=== PATIENT | female | born 1960 | race Caucasian/White ===

== ENCOUNTER → 2017-08-17 10:52 | Outpatient (CLI) | payer OTHER ==
[~2017-08-17] VITALS: Ht 162.6 cm; Wt 120.9 kg
--- NOTE | ~2017-08-17 | HEMODYNAMI ---
PATIENT:ANALY RANDALL MEDICAL RECORD: [id number] : 62 LOCATION:[facility] ADMISSION DATE: 08/17/17 Generatedon:08/17/201713:22 Patient name: ANALY RANDALL Patient #: [id number] SSN: : 1960 Date of study: 08/17/2017 Page: Of Hemodynamic Procedure Report Patient Data Patient Demographics Procedure consent was obtained First Name: ANALY Gender: Female Last Name: PRAKASH : 1960 Middle Initial: ARTI Age: 57 year(s) Patient #: [id number] Race: Unknown Additional ID: [id number] Contact details [address]: [address] [place] [address] State: [place] City: [place] Zip code: [address] Past Medical History Allergies Allergen Reaction Date Comments Reported Other allergy 08/17/2017 lisinopril, topiramate, rosuvastatin Admission Admission Data Admission Date: 08/17/2017 Admission Time: 10:52 Admit Source: Other Lab Results Lab Result Date: 08/17/2017 Lab Result Time: 11:35 Biochemistry Name Units Result Min Max BUN mg/dl 12 --(-*--)-- 7 18 Creatinine mg/dl 0.8 --(-*--)-- 0.6 1.3 CBC Name Units Result Min Max Hematocrit % 39.4 -*(----)-- 42 54 Hemoglobin g/dl 12.8 -*(----)-- 13.5 17.5 Procedure Procedure Types Cath Procedure Miscellaneous Procedures Moderate Sedation up to 15 minutes Peripheral Cath Diagnostic Procedure Cath Peripheral Finkf-Xkzkprl-Wik-Off Procedure Description Procedure Date Procedure Date: 08/17/2017 Procedure Start Time: 13:11 Procedure End Time: 13:20 Procedure Staff Name Function Francis Herzog MD Performing Physician Rolan Khan RT Monitor Elly Tamez RT Scrub Braden Koroma RN Nurse Procedure Data Cath Procedure Fluoroscopy Diagnostic fluoroscopy Total fluoroscopy Time: 0.6 time: 0.6 min min Diagnostic fluoroscopy Total fluoroscopy dose: 171 dose: 171 mGy mGy Contrast Material Contrast Material Type Amount (ml) Isovue 300 81 Entry Location Entry Primary Successful Side Size Upsize Upsize Entry Closure Succes sful Closure Location (Fr) 1 (Fr) 2 (Fr) Remarks Device Remarks Femoral Right 5 Fr Exoseal artery Estimated blood loss: 5 ml Diagnostic catheters Device Type Used For End Catheter Placement DIAGNOSTIC Pigtail 5Fr Procedure catheter ([id number]) Procedure Complications No complications Procedure Medications Medication Administration Route Dosage 0.9% NaCl I.V. 100 ml/hr Oxygen NC 2 l/min Heparin Flush Bag added to field 2 bags (1000units/500ml NS) Lidocaine 2% added to field 20 Versed I.V. 0.5 mg Fentanyl I.V. 25 mcg Versed I.V. 0.5 mg Fentanyl I.V. 25 mcg Fentanyl I.V. 50 mcg Versed I.V. 1 mg Hemodynamics Rest HGB: 12.8 (g/dl) Heart Rate: 70 (bpm) Snapshots Pre Cath Intra NCS Post Cath Vital Signs Time Heart Resp SPO2 etCO2 NIBP (mmHg) Rhythm Pain Sedation Rate (ipm) (%) (mmHg) Status Level (bpm) 12:53:09 80 21 100 40.9 133/88(101) NSR 0 (11) 10(A) , No pain 12:57:44 67 16 100 43.9 133/78(102) NSR 0 (11) 10(A) , No pain 13:02:18 70 17 100 36.3 134/76(100) NSR 0 (11) 10(A) , No pain 13:06:53 71 15 100 43.2 126/80(98) NSR 0 (11) 10(A) , No pain 13:11:25 66 16 100 38.6 128/81(95) NSR 0 (11) 9(A) , No pain 13:15:55 77 13 97 0 123/86(99) NSR 0 (11) 9(A) , No pain 13:20:26 72 17 99 45.4 133/79(98) NSR 0 (11) 9(A) , No pain Medications Time Medication Route Dose Verified Delivered Reason Notes Effe ctiveness by by 12:52:35 0.9% NaCl I.V. 100 Braden Braden Per ml/hr Ga Koroma physician RN RN 12:52:45 Oxygen NC 2 Braden Braden Per l/min Ga Koroma physician RN RN 12:52:56 Heparin Flush added 2 Braden Braden used for Bag to bags Lorigan Lorigan procedure (1000units/500ml field RN RN NS) 12:53:06 Lidocaine 2% added 20ml Braden Braden for local to vial Lorigan Lorigan anesthetic field RN RN 12:58:54 Versed I.V. 0.5 Braden Braden for mg Lorigan Lorigan sedation RN RN 12:59:04 Fentanyl I.V. 25 Braden Braden for mcg Lorigan Lorigan sedation RN RN 13:00:12 Versed I.V. 0.5 Braden Braden for mg Lorigan Lorigan sedation RN RN 13:04:39 Fentanyl I.V. 25 Braden Braden for mcg Lorigan Lorigan sedation RN RN 13:11:32 Fentanyl I.V. 50 Braden Braden for mcg Lorigan Lorigan sedation RN RN 13:11:40 Versed I.V. 1 mg Braden Braden for Lorigan Lorigan sedation RN sql ssis developer Log Time Note 12:38:07 Informed consent obtained and on chart 12:38:10 Admit Source: Other 12:38:30 Diagnostic Cath status Elective 12:38:32 Braden Koroma RN sent for patient. Start room use. 12:38:32 Time tracking: Regular hours 12:38:36 Plan of Care:Hemodynamics will remain stable., Cardiac rhythm will remain stable., Comfort level will be maintained., Respiratory function will remain adequate., Patient/ family verbilizes understanding of procedure., Procedure tolerated without complication., Recovers from procedure without complications.. 12:38:52 H&P Date Dictated: 08/08/2017 Within 30 days and on chart., H&P Addendum completed by physician on day of procedure. (MUST COMPLETE FOR ALL OUTPATIENTS). 12:40:12 Lab Result : BUN 12 mg/dl 12:40:12 Lab Result : Creatinine 0.8 mg/dl 12:40:12 Lab Result : Hemoglobin 12.8 g/dl 12:40:12 Lab Result : Hematocrit 39.4 % 12:40:19 Lab results completed and on chart. 12:42:52 Patient received from Pre/Post Procedure Room to CCL 1 Alert and oriented. Tansferred to table in Supine position. 12:42:53 Warm blankets applied, and essence hugger turned on for patient comfort. 12:42:55 Correct patient and procedure confirmed by team. 12:42:56 ECG and BP/O2 sat monitors applied to patient. 12:42:58 Pre-procedure instructions explained to patient. 12:42:58 Pre-op teaching completed and patient verbalized understanding. 12:42:59 Family in waiting room. 12:43:00 Patient NPO since Midnight. 12:43:35 Patient allergic to Other allergylisinopril, topiramate, rosuvastatin 12:43:38 Is the patient allergic to Iodine/contrast media? No. 12:43:43 Is patient on blood thinner?No 12:43:46 Patient diabetic? Yes. 12:52:19 Vital chart was started 12:52:35 0.9% NaCl 100 ml/hr I.V. was administered by Braden Koroma RN; Per physician; 12:52:45 Oxygen 2 l/min NC was administered by Braden Koroma RN; Per physician; 12:52:56 Heparin Flush Bag (1000units/500ml NS) 2 bags added to field was administered by Braden Koroma RN; used for procedure; 12:53:06 Lidocaine 2% 20ml vial added to field was administered by Braden Koroma RN; for local anesthetic; 12:56:16 If diabetic: On Metformin? Yes 12:56:20 If on Metformin: Last Dose? 08/15/2017 12:56:55 Patient not . Patient is over age 55. 12:56:57 Previous problem with sedation/anesthesia? No ? 12:56:58 Snore? Yes 12:56:59 Sleep apnea? Yes 12:57:00 Deviated septum? No 12:57:00 Opens mouth fully? Yes 12:57:01 Sticks out tongue? Yes 12:57:03 Airway obstruction? No ? 12:57:06 Dentures? Yes in tight 12:57:15 Pre procedure: right dorsailis pedis pulse 1+ Palpable, but thready & weak; easily obliterated 12:57:26 Pre procedure: left dorsailis pedis pulse 1+ Palpable, but thready & weak; easily obliterated 12:57:29 Patient pain scale 0/10 ?. 12:57:35 IV patent on arrival in right forearm with 0.9% NaCl at [facility]. 12:57:40 Bilateral groins area was prepped with chlora-prep and draped in sterile fashion 12:57:41 Alarms reviewed by R. N. 12:57:41 Sharps counted by scrub and verified by R.N. 12:57:45 DIAGNOSTIC WIRE .035 260cm J wire ([id number]) opened to sterile field. 12:57:45 ACIST Syringe (94627) opened to sterile field. 12:57:46 Bag Decanter (2002S) opened to sterile field. 12:57:46 Medline Cath Pack ([id number]) opened to sterile field. 12:57:48 ACIST Manifold (92564) opened to sterile field. 12:57:49 ACIST Hand Control (85423) opened to sterile field. 12:57:50 Tegaderm 4 x 4 (1626W) opened to sterile field. 12:57:52 PERCUTANEOUS ENTRY 19GA needle opened to sterile field. 12:57:56 SHEATH 5FR Steele ([id number]) opened to sterile field. 12:58:15 Physician arrived 12:58:16 --------ALL STOP TIME OUT------ 12:58:16 Final Timeout: patient, procedure, and site verified with staff and physician. All members of the team are in agreement. 12:58:18 Bilateral groins site verified by team. 12:58:20 Physical assessment completed. ASA score P 2 - A patient with mild systemic disease as per Francis Herzog MD. 12:58:23 Sedation plan: IV Moderate Sedation Medication:Versed, Fentanyl 12:58:32 Baseline sample Acquired. 12:58:36 Rhythm: sinus rhythm 12:58:37 Full Disclosure recording started 12:58:42 Zero performed for pressure channel P1 12:58:54 Versed 0.5 mg I.V. was administered by Braden Koroma RN; for sedation; 12:59:04 Fentanyl 25 mcg I.V. was administered by Braden Koroma RN; for sedation; 13:00:12 Versed 0.5 mg I.V. was administered by Braden Koroma RN; for sedation; 13:04:39 Fentanyl 25 mcg I.V. was administered by Braden Koroma RN; for sedation; 13:11:32 Fentanyl 50 mcg I.V. was administered by Braden Koroma RN; for sedation; 13:11:32 Procedure started. 13:11:35 Local anesthetic to right femoral artery with Lidocaine 2% by Francis Herzog MD.INITIAL ACCESS ONLY 13:11:40 Versed 1 mg I.V. was administered by Braden Koroma RN; for sedation; 13:11:45 A 5 Fr sheath was inserted into the Right Femoral artery 13:12:37 A DIAGNOSTIC Pigtail 5Fr catheter ([id number]) was advanced over the wire and used for Procedure. 13:13:45 Abdominal angiogram w/ runoff was performed. 13:14:02 Right leg runoff performed. 13:14:14 Left leg runoff performed. 13:16:00 Catheter removed. 13:16:20 EXOSEAL 5Fr (EX500) opened to sterile field. 13:16:33 Sheath removed intact; hemostasis achieved with Exoseal to the Right Femoral artery. 13:16:34 Procedure ended.(Physican Out) 13:16:39 Fluoroscopy time 00.60 minutes. 13:16:43 Flurop Dose total: 171 13:16:43 Fluoroscopy dose: 171 mGy 13:16:46 Contrast amount:Isovue 300 81ml. 13:16:47 Sharps counted by scrub and verified by R.N. 13:16:49 Insertion/operative site no bleeding no hematoma. 13:16:52 Post-op/insertion site Right Femoral artery dressed using a 4 x 4 and Tegaderm. 13:16:57 Post right femoral artery:stable, soft, clean and dry 13:16:59 Post Procedure Pulses reassessed and unchanged 13:17:00 Post-procedure physical assessment completed. ASA score P 2 - A patient with mild systemic disease as per Francis Herzog MD. 13:17:02 Post procedure rhythm: unchanged. 13:17:04 Estimated blood loss: 5 ml 13:17:06 Post procedure instruction explained to patient.Patient verbalizes understanding. 13:17:07 Patient needs reinforcement of post procedure teaching. 13:17:38 Procedure type changed to Cath procedure, Miscellaneous Procedures, Moderate Sedation up to 15 minutes, Peripheral Cath Diagnostic Procedure, Cath Peripheral, Vobdn-Ynnzbcf-Cwe-Off 13:20:20 Procedure and supply charges have been captured, reviewed, submitted and are correct. 13:20:22 Procedure Complication : No complications 13:20:25 Vital chart was stopped 13:20:25 See physician's report for complete and final results. 13:20:27 Report given to Pre/Post Procedure Room. 13:20:29 Patient transfered to Pre/Post Procedure Room with Stretcher. 13:20:46 Procedure ended. 13:20:46 Full Disclosure recording stopped 13:21:34 End room use (Document Last) Device Usage Item Name Manufacture Quantity Catalog Hospital Part Current Minimal Lot# / Number Charge Number Stock Stock Serial# Code ACIST Acist 1 20516 456209 815491 402871 20 Syringe Medical (78091) Systems Inc Bag Decanter Microtek 1 2001S 301870 32747 634956 5 (2001S) Medical Inc. Medline Cath Cardinal 1 [id number] 347889 31117 108753 5 Pack Health ([id number]) ACIST Acist 1 84528 709371 140632 326725 5 Manifold Medical (94434) Systems Inc ACIST Hand Acist 1 91276 266068 561796 771757 5 Control Medical (73581) Systems Inc Tegaderm 4 x 3M 1 1626W 556580 343013 249229 5 4 (1626W) PERCUTANEOUS Cook Medical 1 X80065 569119 345552 5 ENTRY 19GA needle SHEATH 5FR Terumo 1 YEE271 618119 912635 544928 40 Steele (FEG960) DIAGNOSTIC Cardinal 1 [id number] 518409 005585 875893 5 Pigtail 5Fr Health catheter ([id number]) EXOSEAL 5Fr Cardinal 1 EX500 302817 756441 534777 10 (EX500) Health DIAGNOSTIC [facility] Jesse 1 181133 653745 895738 707401 30 WIRE .035 260cm J wire (666338) Signature Audit [place] Stage Time Signature Unsigned Intra-Procedure 08/17/2017 Rolan Khan 1:22:07 PM RT(R) Signatures Monitor : Rolan Khan RT Signature : Date : Time : [facility] [address] [place] [address]
--- NOTE | ~2017-08-17 | OP ---
PATIENT NAME: ANALY RANDALL MEDICAL RECORD: [id number] :62 LOCATION:[facility] ADMISSION DATE: SURGEON: YOHAN MENSAH MD DATE OF OPERATION: 08/17/2017 PROCEDURE: Aortofemoral runoff. The catheter was placed above the renal arteries, and abdominal aortic angiogram was performed. FINDINGS: Left and right renal arteries were both well visualized, with no evidence of significant renal artery stenosis. Abdominal aorta is a smooth walled vessel, no evidence of aneurysmal dilatation, no evidence of dissection. RIGHT SYSTEM: Right iliac system, external and internal were both free of disease. Right femoral system: Right deep, superficial femoral were both free of disease, with 3-vessel runoff distally. LEFT SYSTEM: Left iliac system, internal and external both free of disease. Left femoral system: Deep, superficial and common are all free of significant disease, with 3-vessel runoff. IMPRESSION: Falsely elevated noninvasive studies, and no evidence of obstructive disease via AFRO. TRANSINT:[id number] Voice Confirmation ID: [id number] DOCUMENT ID: [id number] YOHAN MENSAH MD CC: [id number] DICTATION DATE: 08/17/17 1328 BOOK SORTER: 08/17/17 1348 DEP CLI 08/17/17 [facility] [address] [place] [id number]
[~2017-08-17 10:52] MED LIST: ARAVA10 MG PO; GABAPENTIN100 MG PO; GLUCOPHAGE XR750 MG PO; HYDROCHLOROTH12.5 M1 PO; LIVALO4 MG PO; MOBIC7.5 MG PO; OMEPRAZOLE40 MG PO; PROPRANOLOL HCL20 MG PO
[2017-08-17 11:36] VITALS: BP 134/91; Ht 162.6 cm; Wt 120.9 kg
[2017-08-17 12:06] LABS: BASOPHILS 0.4 % (0-2); HEMATOCRIT 39.4 % (36.0-48.0); HEMOGLOBIN 12.8 g/dL (12-16); IMMATURE GRANULOCYTES 0.2 % (0-5); LYMPHOCYTES 36.4 % (15-50); MCH 29.8 pg (26.0-34.0); MCHC 32.5 g/dL (31.0-37.0); MCV 91.8 fL (80.0-100.0); MEAN PLATELET VOLUME 11.4 fL (7.4-10.4); MONOCYTES 9.1 % (2-11); NEUTROPHILS 50.9 % (40-80); PLATELET COUNT 205 10x3/uL (130-400); RBC 4.29 10x6/uL (4.00-5.40); RDW 14.1 % (11.5-14.5)
[2017-08-17 12:24] LABS: CALC OSMOLALITY 283 mosm/kg (275-300); CALCIUM 9.1 mg/dL (8.5-10.1); CARBON DIOXIDE 30.4 mmol/L (21.0-32.0); CHLORIDE - SERUM 102 mmol/L (98-107); CREATININE - SERUM 0.8 mg/dL (0.6-1.3); GLUCOSE 117 mg/dL (74-106); POTASSIUM - SERUM 3.4 mmol/L (3.5-5.1); SODIUM 142 mmol/L (136-145); UREA NITROGEN 12 mg/dL (7-18); eGFR NON AFRICAN AMERICAN 78 mL/min (90-120)
== END | disposition home or self-care (01) ==
LOC: D.CATH 10:52
PROVIDERS: Internal Medicine Interventional Cardiology
DX: I99.9 Unspecified disorder of circulatory system (principal); Z01.812 Encounter for preprocedural laboratory examination

== ENCOUNTER → 2018-05-18 15:21 | Outpatient (CLI) | payer OTHER ==
[2017-08-17 11:36] VITALS: BMI 45.7
== END | disposition home or self-care (01) ==
LOC: D.LABREF 15:21
DX: J32.9 Chronic sinusitis, unspecified (principal)

== ENCOUNTER 2018-08-28 07:23 | Day surgery (SDC) | payer OTHER ==
[~2018-08-28] VITALS: Ht 162.6 cm; Wt 121.1 kg
[~2018-08-28 07:23] MED LIST changes: +COZAAR100 MG PO
[2018-08-28 07:57] LABS: ANION GAP 11.8 mmol/L (8-16); CALCIUM 9.3 mg/dL (8.5-10.1); CARBON DIOXIDE 31.7 mmol/L (21.0-32.0); CREATININE - SERUM 0.9 mg/dL (0.6-1.3); POTASSIUM - SERUM 3.5 mmol/L (3.5-5.1)
[2018-08-28 08:28] LABS: HEMATOCRIT 41.9 % (36.0-48.0); HEMOGLOBIN 13.8 g/dL (12-16); MCHC 32.9 g/dL (31.0-37.0); MCV 91.1 fL (80.0-100.0); MEAN PLATELET VOLUME 11.6 fL (7.4-10.4); RBC 4.6 10x6/uL (4.00-5.40); RDW 14.1 % (11.5-14.5); WBC 5.7 10x3/uL (4.8-10.8)
[2018-08-28 09:25] VITALS: BP 153/89; Ht 162.6 cm; Wt 121.1 kg
[2018-08-29 18:07] LABS: ACID FAST SMEAR Negative (()); AFB SPECIMEN PROCESSING Concentration (())
[2018-08-29 18:07] LABS: ACID FAST SMEAR Negative (()); AFB SPECIMEN PROCESSING Concentration (()); AFB SPECIMEN PROCESSING Tissue Grinding (())
[2018-08-30 15:22] LABS: FUNGUS STAIN Final report (())
[2018-08-30 15:22] LABS: FUNGUS STAIN Final report (())
--- NOTE | 2018-09-04 08:45 | OP ---
PATIENT NAME: ANALY RANDALL MEDICAL RECORD: [id number] :62 LOCATION:[facility] ADMISSION DATE: SURGEON: HOMERO CACERES MD DATE OF OPERATION: 08/28/2018 PREOPERATIVE DIAGNOSIS: Chronic pansinusitis. POSTOPERATIVE DIAGNOSIS: Chronic pansinusitis. PROCEDURE: Bilateral endoscopic ethmoidectomy, bilateral endoscopic middle meatal antrostomy and left frontal sinusotomy. SURGEON: Homero Caceres MD ANESTHESIA: General orotracheal. BLOOD LOSS: Less than 5 cc. SPECIMENS: Cultures and path from both maxillary sinuses, right and left. COMPLICATIONS: None. DISPOSITION: Recovery stable. NASAL PACKING: None. FINDINGS: Thick green solid material in the maxillary sinuses bilaterally. There was purulence in both maxillary sinuses, both ethmoids and draining from the frontal sinus duct on the left side. DESCRIPTION OF PROCEDURE: She was brought to the operating room and placed in supine position, sedated and intubated by anesthesia. The table was turned 90 degrees. Head drape was applied and she was positioned for sinus surgery. Using a headlight and nasal speculum, the inferior middle turbinate, lateral nasal wall, uncinate were injected with a total of 1 cc of 1% lidocaine with 1:100,000 epinephrine and 2 Afrin pledgets were placed on each side of the nose. She was positioned, prepped and draped in the usual fashion for nasal surgery. The left side was addressed first. Afrin pledgets were removed. Inferior turbinate was normal. The nasopharynx was normal. The septum was normal. Inferior meatus was visualized and normal. The middle turbinate was structurally normal, covered in purulence. Cultures were obtained. Then, the middle turbinate was gently medialized with a freer. There was solid green material filling the middle meatus that was removed. Maxillary sinus was opened and again large chunks of green solid material were removed from that maxillary sinus repeatedly with the ethmoid cavity that was not irrigated yet, but once all that material was removed, the mucosa looked relatively normal, not much granular changes or anything like that just slightly inflamed mucosa. The right side was then addressed. Afrin pledgets were removed and again there was thick caked up yellow material in the middle meatus that was removed. The middle turbinate was gently medialized and the maxillary sinus was entered. Again, large chunks of thick green material were removed, some of this was sent for cultures, some for path and the maxillary sinus was completely debrided as was the ethmoid cavity, really minimal bleeding there as well. Once that was completed, the left side was again examined and was relatively clear from cleaning it previously, but there was drainage from the frontal sinus. A long OPERATIVE REPORT [id number] ANALY RANDALL curved thin olive tip suction was inserted into the frontal sinus and easily went through the duct up into the sinus. This was irrigated. The maxillary sinus, ethmoid cavity were irrigated repeatedly with saline, again getting purulence of this thick green solid material, until it was completely clean. There was no bleeding. The same was repeated with the right side over and over until everything was completely clean. The ethmoid cavities, frontal sinus duct area, and maxillary sinuses were completely clean. The pharynx was suctioned and some mupirocin on a curved olive tip suction was placed in both maxillary sinuses and ethmoids. The eyes were examined and normal. She was awakened, extubated, and transported to recovery in good condition. No complications. TRANSINT:[id number] Voice Confirmation ID: [id number] DOCUMENT ID: [id number] HOMERO CACERES MD at 0845 CC: [id number] DICTATION DATE: 08/28/18 1155 DYE BECK REEL OPERATOR: 08/28/18 1233 [facility] 08/28/18 [facility] [address] [place] [address]
--- NOTE | 2018-09-04 08:45 | HP ---
PATIENT: DEBBIE RANDALL MEDICAL RECORD: [id number] ACCOUNT: [id number] LOCATION:[facility] : 62 ADMISSION DATE: 08/28/18 PCP: CHAVEZ SMITH MD HISTORY AND PHYSICAL EXAMINATION HISTORY OF PRESENT ILLNESS: Debbie is a 58-year-old. She has a history of a sinus surgery. She has had chronic sinusitis and had been refractory to medical management, is being admitted for sinus surgery. PAST MEDICAL HISTORY: Includes, diabetes, hypertension, and reflux. PAST SURGICAL HISTORY: Includes cholecystectomy, hysterectomy, knee replacement, back surgery, rotator cuff surgery, and sinus surgery. CURRENT MEDICATIONS: Include losartan, omeprazole, carisoprodol, hydrochlorothiazide, propranolol, meloxicam, gabapentin, metformin, pravastatin, and leflunomide. ALLERGIES: TOPAMAX AND LISINOPRIL. PHYSICAL EXAMINATION: GENERAL: She is healthy appearing. FACE: Normal, symmetric, no lesions. EYES: Sclerae and conjunctivae are normal. NOSE: She has on endoscopy thick solid material in the maxillary sinus bilaterally and drainage from the ethmoids. ORAL CAVITY AND OROPHARYNX: Normal. Normal palate. Tongue protrudes midline. NECK: No masses, no adenopathy. CHEST: Clear. CARDIOVASCULAR: Regular rate and rhythm, no murmur. EXTREMITIES: Normal. IMPRESSION: Chronic sinusitis. PLAN: Bilateral middle meatal antrostomy and ethmoidectomy. TRANSINT:[id number] Voice Confirmation ID: [id number] DOCUMENT ID: [id number] ZEENAT CACERES MD at 0845 CC: [id number] DICTATION DATE: 08/25/18 1442 [employer]: 08/25/18 1846 [facility] 08/28/18 [place] [id number] [place] [id number]
[2018-09-04 13:13] LABS: FUNGUS MYCOLOGY CULTURE Preliminary report (())
[2018-09-04 13:13] LABS: FUNGUS MYCOLOGY CULTURE Preliminary report (())
== END 2018-08-28 13:50 | disposition home or self-care (01) ==
LOC: D.OPS 07:23
PROVIDERS: Anesthesiology; Otolaryngology
DX: J32.0 Chronic maxillary sinusitis (principal); J32.2 Chronic ethmoidal sinusitis; J32.1 Chronic frontal sinusitis; Z01.812 Encounter for preprocedural laboratory examination

== ENCOUNTER 2018-11-06 11:25 | Outpatient (CLI) | payer OTHER ==
[2018-11-06 11:45] VITALS: BP 163/89; BMI 45.0
--- NOTE | 2018-11-06 12:50 | NUR ---
CATHETER IN LEFT ARM. NO SWELLING DRS CLEAN DRY AND INTACT. LAB DRAWN AND ANTIBIOTIC GIVEN ON A PUMP.
--- NOTE | 2018-11-06 12:56 | NUR ---
CATHETER IN LEFT ARM, DRESSING CLEAN DRY AND INTACT, FLUSHED WITH SALINE AND LAB DRAWN. GOOD BLOOD RETURN. ANTIBIOTIC GIVEN ON PUMP OVER 30MIN. TOLERATED WELL
[2018-11-06 13:07] LABS: BASOPHILS 0.3 % (0-2); EOSINOPHILS 6.5 % (0-7); HEMATOCRIT 37.7 % (36.0-48.0); IMMATURE GRANULOCYTES 0.2 % (0-5); LYMPHOCYTES 35.5 % (15-50); MCH 29.1 pg (26.0-34.0); MCHC 31.8 g/dL (31.0-37.0); MCV 91.3 fL (80.0-100.0); MEAN PLATELET VOLUME 12.5 fL (7.4-10.4); MONOCYTES 7.8 % (2-11); NEUTROPHILS 49.7 % (40-80); RBC 4.13 10x6/uL (4.00-5.40); WBC 6.1 10x3/uL (4.8-10.8)
[2018-11-06 13:09] LABS: PLATELET COUNT 182 10x3/uL (130-400)
[2018-11-06 13:19] LABS: CREATININE - SERUM 0.9 mg/dL (0.6-1.3)
== END 2018-11-06 13:27 | disposition home or self-care (01) ==
LOC: D.OPS 11:25
PROVIDERS: ATTEND Student in an Organized Health Care Education/Training Program
DX: J32.9 Chronic sinusitis, unspecified (principal)

== ENCOUNTER 2018-11-13 10:07 | Outpatient (CLI) | payer OTHER ==
--- NOTE | 2018-11-13 11:19 | NUR ---
PT LEFT UNIT AMBULATING AT 1115
== END 2018-11-13 11:15 | disposition home or self-care (01) ==
LOC: D.LAB 10:07 → D.OPS 10:30 → D.LAB 11:15
PROVIDERS: ATTEND Student in an Organized Health Care Education/Training Program
DX: Z51.81 Encounter for therapeutic drug level monitoring (principal); Z79.2 Long term (current) use of antibiotics

== ENCOUNTER → 2018-11-21 13:12 | Outpatient (CLI) | payer OTHER ==
[2018-11-06 11:45] VITALS: BMI 45.0
[2018-11-21 16:49] LABS: BASOPHILS 0.3 % (0-2); HEMATOCRIT 39.4 % (36.0-48.0); HEMOGLOBIN 12.7 g/dL (12-16); IMMATURE GRANULOCYTES 0.2 % (0-5); LYMPHOCYTES 27.9 % (15-50); MCH 29.5 pg (26.0-34.0); MCHC 32.2 g/dL (31.0-37.0); MCV 91.4 fL (80.0-100.0); MEAN PLATELET VOLUME 12.7 fL (7.4-10.4); MONOCYTES 8.2 % (2-11); NEUTROPHILS 56.4 % (40-80); PLATELET COUNT 205 10x3/uL (130-400); RBC 4.31 10x6/uL (4.00-5.40); RDW 12.9 % (11.5-14.5); WBC 6.1 10x3/uL (4.8-10.8)
== END | disposition home or self-care (01) ==
LOC: D.LABREF 13:12
PROVIDERS: ATTEND Student in an Organized Health Care Education/Training Program
DX: J32.9 Chronic sinusitis, unspecified (principal)

== ENCOUNTER 2018-11-22 08:00 | Outpatient (CLI) | payer OTHER ==
--- NOTE | 2018-11-22 14:55 | NUR ---
1455-ARRIVED TO ROOM 2510 FOR MID LINE REPLACEMENT. ALBERTA THIBODEAUX WITH VASCULAR ACCESS NOTIFIED.
== END 2018-11-22 23:59 | disposition home or self-care (01) ==
LOC: D.OPS 08:00
PROVIDERS: ATTEND Student in an Organized Health Care Education/Training Program
DX: J32.9 Chronic sinusitis, unspecified (principal)

== ENCOUNTER 2020-10-12 12:21 | Inpatient (IN) | payer OTHER ==
[~2020-10-12] VITALS: Ht 162.6 cm; Wt 105.9 kg
--- NOTE | ~2020-10-12 | HEMODYNAMI ---
PATIENT:ANALY RANDALL MEDICAL RECORD: [id number] : 62 [id number] ADMISSION DATE: 10/12/20 Generatedon:18:56 Patient name: ANALY RANDALL Patient #: [id number] SSN: : 1960 Date of study: 10/16/2020 Page: Of Hemodynamic Procedure Report Patient Data Patient Demographics Procedure consent was obtained First Name: ANALY Gender: Female Last Name: PRAKASH : 1960 Middle Initial: ARTI Age: 60 year(s) Patient #: [id number] Race: Unknown Additional ID: [id number] Contact details [address]: [address] [place] [address] State: [place] City: [place] Zip code: [address] Past Medical History Allergies Allergen Reaction Date Comments Reported Other allergy 08/17/2017 lisinopril, topiramate, rosuvastatin Other allergy 10/16/2020 lisinopril, adhesive tape, topomax Admission Admission Data Admission Date: 10/12/2020 Admission Time: 15:10 Room #: D.2137 Procedure Procedure Types Cath Procedure Peripheral Cath Diagnostic Procedure PICC PICC Line Placement Procedure Description Procedure Date Procedure Date: 10/16/2020 Procedure Start Time: 8:47 Procedure End Time: 8:56 Procedure Staff Name Function Dallin Steven MD Performing Physician JOSÉ MANUEL CANNON RT Monitor Teja Hurd RT Scrub Gabbie Farrell RN Nurse Sara Higginbotham RN Nurse Procedure Data Cath Procedure Fluoroscopy Diagnostic fluoroscopy Total fluoroscopy Time: 0.1 time: 0.1 min min Hemodynamics Rest Pre Cath Intra NCS Post Cath Procedure Log Time Note 8:26:56 Teja Hurd RT (R) (CV) sent for patient. Start room use. 8:26:58 Time tracking: Regular hours (M-F 7:00 - 5:00) 8:27:03 Patient received from Med II to IR Alert and oriented. Tansferred to table in Supine position. 8:: Signed procedure consent form obtained from patient. 8::07 Warm blankets applied, and essence hugger turned on for patient comfort. ::08 Correct patient and procedure confirmed by team. 8::09 8:27:20 Pre-procedure instructions explained to patient. 8::20 Pre-op teaching completed and patient verbalized understanding. 8:28:11 Patient allergic to Other allergylisinopril, adhesive tape, topomax 8:28:17 Is the patient allergic to Iodine/contrast media? No. 8:28:25 8:28:36 Right Arm was prepped with chlora-prep and draped in sterile fashion. 8:28:37 Alarms reviewed by Manuel Dykes 8:28:38 Sharps counted by scrub and verified by Emanuel 8:28:39 8:40:22 Physician arrived 8:40:23 --------ALL STOP TIME OUT------ 8:40:24 Final Timeout: patient, procedure, and site verified with staff and physician. All members of the team are in agreement. 8:40:26 Right Arm site verified by team. 8:42:49 Procedure started. 8:42:49 Full Disclosure recording started 8:47:00 Local anesthetic to right arm with Lidocaine 1% by Dallin Steven MD.INITIAL ACCESS ONLY 8:47:21 Venous access obtained using ultrasound guidance. 8:48:47 PICC line was trimmed to 34cm and advanced to the superior vena cava.Position verified under fluoroscopy. 8:53:56 Procedure ended.(Physican Out) 8:54:05 Fluoroscopy time 00.10 minutes. 8:54:08 Dose Area Product 1 mGy/cm. 8:54:09 Sharps counted by scrub and verified by R.N. 8:54:15 Insertion/operative site no bleeding no hematoma. 8:54:28 Post-op/insertion site Right Arm dressed using a biopatch and SorbaView Sheild. 8:55:02 Procedure and supply charges have been captured, reviewed, submitted and are correct. 8:55:28 Use device set IR Diagnostic 8:55:29 Tegaderm 4 x 4 ([id number]) opened to sterile field. 8:55:30 Sterile Angiographic Pack opened to sterile field. 8:55:31 Bag Decanter () opened to sterile field. 8:55:32 PowerPICC 5Fr double lumen catheter opened to sterile field. 8:56:10 Patient transfered to [facility] with Wheelchair. 8:56:11 Procedure ended. 8:56:11 Full Disclosure recording stopped Device Usage Item Name Manufacture Quantity Catalog Hospital Part Current Minimal Lot# / Number Charge Number Stock Stock Serial# Code Tegaderm 4 x 3M 1 [id number] 4 (1626W) Sterile Cardinal 1 [id number] 5 Angiographic Health Pack Bag Decanter Microtek 1 [id number] 5 () [employer] PowerPICC Bard 1 [id number] 5 5Fr double lumen catheter Signature Audit [place] Stage Time Signature Unsigned Intra-Procedure 10/16/2020 JOSÉ MANUEL CANNON RT 8:56:23 AM (R) [facility] [address] [place] [address]
[~2020-10-12 12:21] MED LIST changes: +HYDROCODON-ACE1 EAC7 PO; +PHENERGAN25 M1 PO; +PRAVACHOL40 MG PO; +ULTRAM50 MG PO; +VITAMIN D50000 UNI1 PO
[2020-10-12 13:49] LABS: ANION GAP 13.4 mmol/L (8-16); CALCIUM 9.4 mg/dL (8.5-10.1); CARBON DIOXIDE 28.2 mmol/L (21.0-32.0); CREATININE - SERUM 0.9 mg/dL (0.6-1.3); POTASSIUM - SERUM 3.6 mmol/L (3.5-5.1)
[2020-10-12 13:54] LABS: BASOPHILS 0.6 % (0-2); EOSINOPHILS 3.5 % (0-7); HEMATOCRIT 43.8 % (36.0-48.0); LYMPHOCYTE ABS# 1.81 10x3/uL (1.18-3.74); LYMPHOCYTES 25.1 % (15-50); MCH 29.5 pg (26.0-34.0); MCV 92.4 fL (80.0-100.0); MEAN PLATELET VOLUME 11.7 fL (7.4-10.4); MONOCYTES 7.2 % (2-11); NEUTROPHIL ABS# 4.59 10x3/uL (1.56-6.13); NEUTROPHILS 63.6 % (40-80); PLATELET COUNT 241 10x3/uL (130-400); RBC 4.74 10x6/uL (4.00-5.40); RDW 12.9 % (11.5-14.5); WBC 7.2 10x3/uL (4.8-10.8)
[2020-10-12 14:05] LABS: ALBUMIN 3.8 g/dL (3.4-5.0); BILIRUBIN - DIRECT 0.08 mg/dL (0.00-0.30); BILIRUBIN - INDIRECT 0.26 mg/dL (0.00-1.00); BILIRUBIN - TOTAL 0.34 mg/dL (0.2-1.3); PROTEIN - SERUM 8.2 g/dL (6.4-8.2)
[2020-10-12 16:16] VITALS: BP 183/80
[2020-10-12 17:01] VITALS: BP 183/80; Ht 162.6 cm; Wt 105.9 kg
--- NOTE | 2020-10-12 19:30 | NUR ---
RECEIVED REPORT, WILL ASSUME CARE OF PT, ASKING IF SHE WAS GOING TO GET DINNER, PROVIDED A SANDWICH AND DRINK, DENIES ANY OTHER NEEDS AT THIS TIME, BED IS LOW, SRX2, CALL LIGHT IN REACH, WILL CONTINUE PLAN OF CARE
[2020-10-12] MEDS ORDERED: GLUCOPHAGE500 MG PO (19:55)
[2020-10-12 22:30] VITALS: BP 111/75
--- NOTE | 2020-10-13 04:47 | NUR ---
I have reviewed this patient and I concur with the Shift Assessment completed by the Licensed Practical Nurse today this shift.
[2020-10-13 06:32] LABS: ANION GAP 8.6 mmol/L (8-16); BASOPHILS 0.6 % (0-2); BILIRUBIN - TOTAL 0.57 mg/dL (0.2-1.3); CALCIUM 8.8 mg/dL (8.5-10.1); CARBON DIOXIDE 30.1 mmol/L (21.0-32.0); CREATININE - SERUM 0.9 mg/dL (0.6-1.3); EOSINOPHILS 5.8 % (0-7); HEMATOCRIT 38.4 % (36.0-48.0); HEMOGLOBIN 12.1 g/dL (12-16); IMMATURE GRANULOCYTES 0.3 % (0-5); LYMPHOCYTE ABS# 1.27 10x3/uL (1.18-3.74); LYMPHOCYTES 38.8 % (15-50); MCH 29.1 pg (26.0-34.0); MCHC 31.5 g/dL (31.0-37.0); MCV 92.3 fL (80.0-100.0); MEAN PLATELET VOLUME 11.5 fL (7.4-10.4); MONOCYTES 8.6 % (2-11); NEUTROPHILS 45.9 % (40-80); PLATELET COUNT 203 10x3/uL (130-400); POTASSIUM - SERUM 3.7 mmol/L (3.5-5.1); PROTEIN - SERUM 6.8 g/dL (6.4-8.2); RBC 4.16 10x6/uL (4.00-5.40)
[2020-10-13 06:37] LABS: WBC 3.3 10x3/uL (4.8-10.8)
--- NOTE | 2020-10-13 07:00 | NUR ---
RECEIVED REPORT. ASSUMED CARE OF PATIENT. CALL LIGHT WITHIN REACH. PATIENT RESTING IN BED WITH EYES OPEN, ATTENTION TOWARD CELLPHONE. WHITE BOARD UPDATED, BEDSIDE SHIFT REPORT COMPLETE. DENIES NEEDS. NO DISTRESS.
--- NOTE | 2020-10-13 08:14 | NUR ---
medicated for pain to periorbital sites at this time. Dr. Carlisle at bedside for am rounds. no distress.
--- NOTE | 2020-10-13 08:24 | HP ---
PATIENT: ANALY RANDALL MEDICAL RECORD: [id number] ACCOUNT: [id number] LOCATION:[address] : 62 ADMISSION DATE: 10/12/20 PCP: CHAVEZ SMITH MD HISTORY AND PHYSICAL EXAMINATION CHIEF COMPLAINT: Headache pain for "several months." HISTORY OF PRESENT ILLNESS: This is a 60-year-old female with diabetes, chronic sinusitis, had sinus surgery in August by Dr. Crawford has had pseudomonas resistant to Cipro and Levaquin. States that she is just having worsening pain in her head and around the left eye. Denies fever or chills. No vision changes. No nausea or vomiting. No dizziness. In the ER, CBC was normal. BMP and liver functions were all okay. A CT of the head showed no acute intracranial process, but there was extensive paranasal sinus disease. With her pain and resistant sinusitis she is admitted. PAST MEDICAL AND SURGICAL HISTORY: She has the chronic sinusitis as above, osteoarthritis, hypertension, diabetes, hyperlipidemia, reflux and obesity. PAST SURGICAL HISTORY: Sinus surgery by Dr. Crawford on 08/19/2020. She has had bilateral carpal tunnel release, bilateral knee arthroscopies, bilateral shoulder surgeries, left total knee arthroplasty, appendectomy, cholecystectomy, hysterectomy, back surgery. ALLERGIES: TO LISINOPRIL AND TOPAMAX. HOME MEDICATIONS: Phenergan p.r.n. nausea and vomiting, losartan 100 mg once a day, pravastatin 40 mg once a day, propranolol 20 mg twice a day, gabapentin 300/600 mg twice a day, [place] 5 q. 6 hours p.r.n. pain, tramadol 50 b.i.d. p.r.n. pain, meloxicam 15 mg once a day, hydrochlorothiazide 12.5 mg once a day, omeprazole 40 mg once a day, metformin 500 mg once a day. She takes Taltz shots from Dr. Viveros station air traffic control specialist once a month, vitamin D 50,000 units every Tuesday. HABITS: No tobacco, alcohol or drugs. FAMILY HISTORY: Parents with heart disease and cancer. SOCIAL HISTORY: She is retired. REVIEW OF SYSTEMS: GENERAL: No major weight changes. HEENT: Chronic sinusitis as above. CARDIAC: No known history of heart disease. LUNGS: She has had some asthma problems. GASTROINTESTINAL: She has had heartburn/GERD. GENITOURINARY: Urine, no significant infections there. MUSCULOSKELETAL: Osteoarthritis. NEUROLOGIC: No history of migraines or seizures. PSYCHIATRIC: Denies depression or melancholia. PHYSICAL EXAMINATION: VITAL SIGNS: Temperature 97.5, pulse 78, respirations 20, blood pressure 183/80, O2 sat 98%. GENERAL: She is awake, alert. She is complaining of some pain around the left eye and across the frontal area. HISTORY AND PHYSICAL [id number] ANALY RANDALL SKIN: Warm and dry. HEENT: Grossly within normal limits. NECK: Supple. No JVD or bruit. HEART: Regular rate and rhythm without murmur. CHEST: Lungs are clear. ABDOMEN: Soft, nontender. EXTREMITIES: No edema. LABORATORY DATA: CBC with a white count of 7200, hemoglobin 14, hematocrit 43.8. Basic metabolic panel: Sodium 138, potassium 3.6, chloride 100, CO2 is 28.2, BUN 13, creatinine 0.9, glucose 102, calcium 9.4. Liver functions are normal. CT of the head shows no acute intracranial problem, but there is extensive paranasal sinus disease. ASSESSMENT: 1. Chronic sinusitis. 2. Worsening headache. PLAN: She is admitted. Blood cultures were done. She has been started on Zosyn and gentamicin from the ED. We will control her pain. Monitor sugar. Other tests or procedures as warranted. TRANSINT:[id number] Voice Confirmation ID: [id number] DOCUMENT ID: [id number] MIKAEL COURTNEY MD at 0824 CC: [id number] DICTATION DATE: 10/12/202004 SOFTWARE TESTER: 10/12/20 2105 ADM IN [facility] [address] [place] [id number]
[2020-10-13 08:58] VITALS: BP 147/76
--- NOTE | 2020-10-13 11:10 | NUR ---
FSBS 126. NO INSULIN COVERAGE PER SLIDING SCALE.
--- NOTE | 2020-10-13 12:41 | NUR ---
SCDs APPLIED TO BILATERAL LOWER EXTREMITIES. MED REC COMPLETED, PHARMACY UPDATED. NO DISTRESS.
[2020-10-13 15:53] VITALS: BP 144/72
--- NOTE | 2020-10-13 16:14 | NUR ---
fsbs 111. no insulin per sliding scale. Medicated for pain at this time. no distress.
--- NOTE | 2020-10-13 19:03 | NUR ---
pt lying in bed no distress noted will continue to monitor
[2020-10-13 20:00] VITALS: BP 134/60
[2020-10-14 04:00] VITALS: BP 118/45
[2020-10-14 06:32] LABS: ANION GAP 9.5 mmol/L (8-16); CALCIUM 9.2 mg/dL (8.5-10.1); POTASSIUM - SERUM 3.5 mmol/L (3.5-5.1)
[2020-10-14 06:33] LABS: BASOPHILS 0.5 % (0-2); EOSINOPHILS 5.9 % (0-7); HEMATOCRIT 40.1 % (36.0-48.0); HEMOGLOBIN 12.8 g/dL (12-16); IMMATURE GRANULOCYTES 0.3 % (0-5); LYMPHOCYTE ABS# 1.74 10x3/uL (1.18-3.74); LYMPHOCYTES 44.7 % (15-50); MCH 29.3 pg (26.0-34.0); MCHC 31.9 g/dL (31.0-37.0); MCV 91.8 fL (80.0-100.0); MEAN PLATELET VOLUME 11.7 fL (7.4-10.4); NEUTROPHIL ABS# 1.54 10x3/uL (1.56-6.13); NEUTROPHILS 39.6 % (40-80); PLATELET COUNT 213 10x3/uL (130-400); RBC 4.37 10x6/uL (4.00-5.40); RDW 12.6 % (11.5-14.5); WBC 3.9 10x3/uL (4.8-10.8)
--- NOTE | 2020-10-14 06:55 | HP ---
PATIENT: ANALY RANDALL MEDICAL RECORD: [id number] ACCOUNT: [id number] LOCATION:[address] : 62 ADMISSION DATE: 10/12/20 PCP: CHAVEZ SMITH MD HISTORY AND PHYSICAL EXAMINATION REASON FOR ADMISSION: Severe headache. HISTORY OF PRESENT ILLNESS: The patient is a 60-year-old female with history of metabolic syndrome and chronic sinusitis. She had a headache progressively getting worse and failing outpatient therapy for the last several weeks. She had had bilateral maxillary sinus antrectomies by Dr. Crawford recently, who states she has been having increasing headaches in the left frontal area over her eye. She had these headaches are unlike her migraines, which she has a history of. She was placed on Fioricet without improvement, was due to see Dr. Crawford, but came in over the weekend because of increasing headache. She denies fever. Still has some postnasal drainage. PAST MEDICAL HISTORY: Chronic maxillary sinusitis with resistant pseudomonas, currently on nasal antibiotics as it was resistant to Cipro and Levaquin; migraine headaches; hypertension; hyperlipidemia; osteoarthritis; diabetic neuropathy; psoriasis; obesity; and chronic low back pain. SURGICAL HISTORY: She has had arthroscopic procedure on the shoulder, carpal tunnel release, cholecystectomy, hysterectomy, knee replacement, lumbar fusion, partial claviculectomy, and recent bilateral sinus windows. FAMILY HISTORY: Positive for hypertension. SOCIAL HISTORY: She has never used tobacco products or alcohol. MEDICATIONS: Fioricet 50/300 one to two q.6 hours for headache, Inderal 20 mg b.i.d., HCTZ 12.5 q.a.m., omeprazole 40 mg q.a.m., Pravastatin 40 mg at bedtime, losartan 100 mg a day, Metformin 500 mg at bedtime, albuterol HFA one to two puffs q.6 hours p.r.n. shortness of breath, meloxicam 15 mg a day, gabapentin 300 mg 2 capsules b.i.d., Zofran 4 mg q.4 hours p.r.n. nausea, clonidine 0.1 mg p.o. for systolic blood pressure over 170, amlodipine 5 mg a day, methocarbamol 500 mg b.i.d. p.r.n. muscle spasm, and lumbago Maxalt 10 mg p.r.n. migraine headaches. ALLERGIES: LISINOPRIL AND TOPAMAX. REVIEW OF SYSTEMS: GENERAL: She denies any recent fever. Has been fatigued since her surgery. Poor appetite. HEENT: No recent visual changes. She has chronic sinus congestion, somewhat better recently. Denies any epistaxis. Has complained of headache over the left frontal area and orbit. RESPIRATORY: No SOB or cough. CARDIAC: No exertional chest pain, claudication, or edema. GASTROINTESTINAL: No nausea, vomiting, change in stools or blood per rectum. GENITOURINARY: No incontinence. GYNECOLOGIC: No vaginal bleeding. MUSCULOSKELETAL: Has chronic lumbago and shoulder arthralgias from previous surgeries. INTEGUMENT: No rash or itching. HISTORY AND PHYSICAL [id number] ANALY RANDALL PSYCHIATRIC: Denies depressed mood. PHYSICAL EXAMINATION: VITAL SIGNS: The patient is afebrile, blood pressure of 140/80, heart rate is 72 and regular. Her weight is 234 pounds with a height of 64 inches, BMI of 40. GENERAL: The patient is in obvious discomfort. HEENT: Normocephalic. Eyes were clear with some photophobia bilaterally. Pupils are equal and reactive. She is tender over the left frontal sinus to palpation. NECK: Supple. CHEST: Clear. HEART: Regular rate. ABDOMEN: Obese, soft, nontender. EXTREMITIES: 1+ bipedal edema bilaterally. INTEGUMENT: No rash. PSYCHIATRIC: Denies depressed mood. NEUROLOGIC: Oriented times 3. Cranial nerves grossly intact. Gait is normal. ASSESSMENT: 1. Intractable left frontal headache. 2. CT scan showing pansinusitis. Postoperative changes in the maxillary sinuses bilaterally. 3. History of migraine headache. This headache is atypical metabolic syndrome. PLAN: The patient will be admitted for pain control. ENT consult, Dr. Crawford. Sliding scale insulin. TRANSINT:[id number] Voice Confirmation ID: [id number] DOCUMENT ID: [id number] CHAVEZ SMITH MD at 0655 CC: [id number] DICTATION DATE: 10/13/20 1323 TIME MOTION ANALYST: 10/13/20 1540 [place] [address]
[2020-10-14 07:28] VITALS: BP 118/45
[2020-10-14 11:11] LABS: HEPATITIS C ANTIBODY <0.1 S/CO RAT (0.0-0.9)
[2020-10-14 15:00] VITALS: BP 118/45
--- NOTE | 2020-10-14 18:50 | NUR ---
pt sitting in bed denies issues, reports BM today after prune juice. no distress noted, will continue to monitor
[2020-10-14 20:00] VITALS: BP 113/53
[2020-10-15 04:00] VITALS: BP 136/94
[2020-10-15 08:19] VITALS: BP 137/60
[2020-10-15 12:16] VITALS: BP 151/75
[2020-10-15 16:06] VITALS: BP 127/65
--- NOTE | 2020-10-15 19:01 | NUR ---
pt lying in bed left side, denies issues. no distress noted will cotninue to monitor
[2020-10-15 20:00] VITALS: BP 139/62
[2020-10-16 04:00] VITALS: BP 116/60
[2020-10-16 08:00] VITALS: BP 127/82
[2020-10-16 11:00] VITALS: BP 127/73
[2020-10-16] MEDS ORDERED: SUDAFED 30 MG T30 MG PO (16:36)
[2020-10-16] MEDS ORDERED: FLORAJEN3 CAPS460 MG PO (16:36)
--- NOTE | 2020-10-16 17:43 | NUR ---
PUT IN DC ORDERS PER DR. SMITH WHO WAS IN CLINIC. ORDERED TO CONTINUE HOME MEDS ADD PROBIOTIC AND SUDAFED WHICH SHE CAN GET OTC. CASE MANAGEMENT SET UP HOME ABX. ORDERS PUT IN. DC INSTRUCTIONS PROVIDED TO PATIENT. PRINTED COPY GIVEN. PT VERBALIZED UNDERSTANDING. REMOVED PERIPHERAL IV. COVERED PICC LINE WITH MESH SLEEVE. TRANSPORTED PT TO ER ENTRANCE VIA WHEELCHAIR TO DAUGHTER'S VEHICLE.
== END 2020-10-16 17:45 | disposition home or self-care (01) | DRG 153 ==
LOC: D.ER 12:21 → D.M2 15:10 → D.ER 15:29 → D.M2 10-16 17:45
PROVIDERS: Family Medicine; Radiology Vascular & Interventional Radiology; ADMIT Family Medicine; ATTEND Family Medicine
PROC: B5181ZA Fluoroscopy of Superior Vena Cava using Low Osmolar Contrast, Guidance (ICD-10-PCS; 2020-10-16)
PROC: 02HV33Z Insertion of Infusion Device into Superior Vena Cava, Percutaneous Approach (ICD-10-PCS; principal; 2020-10-16 08:27)
DX: J32.9 Chronic sinusitis, unspecified (principal); E11.65 Type 2 diabetes mellitus with hyperglycemia; E11.40 Type 2 diabetes mellitus with diabetic neuropathy, unspecified; K21.9 Gastro-esophageal reflux disease without esophagitis; R51.9 Headache, unspecified

== ENCOUNTER → 2020-10-27 16:24 | Outpatient (CLI) | payer OTHER ==
[2020-10-12 17:01] VITALS: BMI 40.1
[~2020-10-27 16:24] MED LIST changes: +FLORAJEN3 CAPS460 MG PO; +GLUCOPHAGE500 MG PO; +SUDAFED 30 MG T30 MG PO
[2020-10-27 16:46] LABS: ALBUMIN 3.4 g/dL (3.4-5.0); ALKALINE PHOSPHATASE 115 U/L (30-120); ALT (SGPT) 43 U/L (10-68); BILIRUBIN - DIRECT 0.07 mg/dL (0.00-0.30); BILIRUBIN - TOTAL 0.26 mg/dL (0.2-1.3); CALC OSMOLALITY 284 mosm/kg (275-300); CALCIUM 8.7 mg/dL (8.5-10.1); CARBON DIOXIDE 29.7 mmol/L (21.0-32.0); CHLORIDE - SERUM 104 mmol/L (98-107); CREATININE - SERUM 0.8 mg/dL (0.6-1.3); GLUCOSE 120 mg/dL (74-106); PROTEIN - SERUM 7.1 g/dL (6.4-8.2); SODIUM 142 mmol/L (136-145); UREA NITROGEN 16 mg/dL (7-18); eGFR NON AFRICAN AMERICAN 78 mL/min (90-120)
== END | disposition home or self-care (01) ==
LOC: D.LABREF 16:24
PROVIDERS: ATTEND Family Medicine
DX: J32.4 Chronic pansinusitis (principal); B96.5 Pseudomonas (aeruginosa) (mallei) (pseudomallei) as the cause of diseases classified elsewhere

== ENCOUNTER → 2020-12-23 20:57 | Outpatient (CLI) | payer OTHER ==
[2020-10-12 17:01] VITALS: BMI 40.1
[~2020-12-23 20:57] MED LIST changes: +MAXIPIME 1 GM/D51 G1 IV
[2020-12-23 21:28] LABS: BASOPHILS 0.3 % (0-2); EOSINOPHILS 4.7 % (0-7); HEMATOCRIT 38.8 % (36.0-48.0); HEMOGLOBIN 12.9 g/dL (12-16); LYMPHOCYTES 38.9 % (15-50); MCH 30.3 pg (26.0-34.0); MCHC 33.3 g/dL (31.0-37.0); MEAN PLATELET VOLUME 9.7 fL (7.4-10.4); NEUTROPHILS 48.1 % (40-80); PLATELET COUNT 239 10x3/uL (130-400); RBC 4.27 10x6/uL (4.00-5.40); RDW 14.2 % (11.5-14.5); WBC 5.7 10x3/uL (4.8-10.8)
[2020-12-24 10:32] LABS: CREATININE - SERUM 1.3 mg/dL (0.6-1.3)
== END | disposition home or self-care (01) ==
LOC: D.LABREF 20:57
PROVIDERS: ATTEND Student in an Organized Health Care Education/Training Program
DX: J32.4 Chronic pansinusitis (principal); Z45.2 Encounter for adjustment and management of vascular access device

== ENCOUNTER → 2020-12-29 19:43 | Outpatient (CLI) | payer OTHER ==
[2020-10-12 17:01] VITALS: BMI 40.1
[2020-12-29 20:11] LABS: BASOPHILS 0.7 % (0-2); EOSINOPHILS 4.8 % (0-7); HEMATOCRIT 37.3 % (36.0-48.0); HEMOGLOBIN 12.6 g/dL (12-16); LYMPHOCYTES 38.4 % (15-50); MCH 30.5 pg (26.0-34.0); MCHC 33.8 g/dL (31.0-37.0); MCV 90.3 fL (80.0-100.0); MEAN PLATELET VOLUME 10.2 fL (7.4-10.4); MONOCYTES 6.9 % (2-11); NEUTROPHILS 49.2 % (40-80); PLATELET COUNT 234 10x3/uL (130-400); RBC 4.13 10x6/uL (4.00-5.40); RDW 13.5 % (11.5-14.5); WBC 5.7 10x3/uL (4.8-10.8)
[2020-12-29 20:23] LABS: CREATININE - SERUM 1.3 mg/dL (0.6-1.3)
== END | disposition home or self-care (01) ==
LOC: D.LABREF 19:43
PROVIDERS: ATTEND Student in an Organized Health Care Education/Training Program
DX: J32.4 Chronic pansinusitis (principal)

== ENCOUNTER → 2021-01-05 10:58 | Outpatient (CLI) | payer OTHER ==
[2020-10-12 17:01] VITALS: BMI 40.1
[2021-01-05 12:19] LABS: CREATININE - SERUM 0.8 mg/dL (0.6-1.3)
[2021-01-05 12:25] LABS: EOSINOPHILS 4.7 % (0-7); MEAN PLATELET VOLUME 9.8 fL (7.4-10.4)
[2021-01-05 12:27] LABS: BASOPHILS 0.7 % (0-2); HEMATOCRIT 40.2 % (36.0-48.0); HEMOGLOBIN 13.7 g/dL (12-16); LYMPHOCYTES 40.6 % (15-50); MCH 30.5 pg (26.0-34.0); MCV 89.5 fL (80.0-100.0); MONOCYTES 8.1 % (2-11); NEUTROPHILS 45.9 % (40-80); PLATELET COUNT 238 10x3/uL (130-400); RBC 4.49 10x6/uL (4.00-5.40); RDW 13.4 % (11.5-14.5); WBC 5.8 10x3/uL (4.8-10.8)
== END | disposition home or self-care (01) ==
LOC: D.LABREF 10:58
PROVIDERS: ATTEND Student in an Organized Health Care Education/Training Program
DX: J32.4 Chronic pansinusitis (principal)